=== PATIENT | female | born 1935 | race Caucasian/White ===

== ENCOUNTER 2016-04-12 12:19 | Day surgery (SDC) | payer MEDICARE ==
[2016-04-07 21:46] LABS: BASOPHILS 0.2 %; BASOPHILS ABSOLUTE 0.01 10/3/uL (0.0-0.16); EOSINOPHILS 1.1 %; EOSINOPHILS ABSOLUTE 0.07 10/3/uL (0.0-0.53); HEMATOCRIT 42.1 % (36.0-48.0); IMMATURE GRANULOCYTES 0.2 %; IMMATURE GRANULOCYTES ABSOLUTE 0.01 10/3/uL (0.0-0.11); LYMPHOCYTES 19.4 %; LYMPHOCYTES ABSOLUTE 1.27 10/3/uL (0.67-4.30); MEAN CORPUS HGB CONC 33.3 g/dL (32.0-36.0); MEAN CORPUSCULAR HEMOGLOB 29.5 pg (26.0-34.0); MEAN CORPUSCULAR VOLUME 88.8 fL (80-100); MEAN PLATELET VOLUME 11.6 fL (9.2-13.0); MONOCYTES 8.5 %; MONOCYTES ABSOLUTE 0.56 10/3/uL (0.21-1.20); NEUTROPHILS 70.6 %; NEUTROPHILS ABSOLUTE 4.63 10/3/uL (2.02-8.40); PLATELET COUNT 189 10/3/uL (150-400); RBC DISTRIBUTION WIDTH 13.5 % (12.0-16.0); RED CELL COUNT 4.74 10/6/uL (4.0-5.6); WHITE BLOOD CELLS 6.6 10/3/uL (4.5-10.5)
[2016-04-07 21:50] LABS: MANUAL DIFF NO %
[2016-04-07 21:57] LABS: CALCIUM, SERUM 9.7 MG/DL (8.5-10.4); CHLORIDE, SERUM 100 MMOL/L (96-112); GFR AFRICAN AMERICAN 80 ML/MIN (>=60); GFR NON AFRICAN AMERICAN 69 ML/MIN (>=60); POTASSIUM, SERUM 5.1 MMOL/L (3.5-5.3); SODIUM, SERUM 137 MMOL/L (135-148)
[2016-04-07 21:58] LABS: BUN (BLOOD UREA NITROGEN) 17 MG/DL (6-23); CO2 (CARBON DIOXIDE) 24 MMOL/L (24-34); GLUCOSE, SERUM 100 MG/DL (60-99)
--- NOTE | ~2016-04-12 | OP ---
Record Of Operation [facility] [address] [place]. [address] NAME: TAO REBOLLEDO : 31 STATUS : [facility] PAT#: [id number] AGE: 80 ADM/REG DATE : 04/12/16 MR#: [id number] REPORT SERV DATE: 04/12/16 DICTATED BY: PRASHANTH RHOADES DATE: 04/12/16 REPORT STATUS : Draft TRANSCRIBED BY: MODL DATE: 04/12/16 DATE OF PROCEDURE: 04/12/2016 PREOPERATIVE DIAGNOSIS: Lower extremity atherosclerosis with rest pain, right foot. POSTOPERATIVE DIAGNOSIS: Lower extremity atherosclerosis with rest pain, right foot. PROCEDURES: 1. Aortogram with right leg runoff. 2. Stent placement, right popliteal artery. SURGEON: Prashanth Rhoades M.D. ANESTHESIA: Local with sedation. COMPLICATIONS: None. BLOOD LOSS: Minimal. HISTORY: The patient is an 80-year-old female with diminished perfusion of the right foot, atherosclerosis, and rest pain symptoms. It was felt she would benefit from arteriogram with intervention. This was discussed in detail with the patient, she expressed understanding and desired to proceed. DESCRIPTION OF PROCEDURE: The patient was taken to the operating room and placed in the supine position. She was given IV sedation without complication. Both groins were prepped and draped in sterile fashion. Ultrasound was used to identified common femoral artery on the left. 1% lidocaine was infiltrated in the skin and subcutaneous tissues. Under ultrasound guidance, an 18-gauge needle was placed in the common femoral artery. Wire was passed into the aorta, which was confirmed with fluoroscopy. The needle was removed and a 5 [place] sheath placed. UF catheter was passed over the wire in the aorta. Aortogram shows patent distal aorta and patent common internal and external iliac arteries bilaterally. There was extensive bowel gas. The common femoral, profunda femoral, and superficial femoral artery proximally are patent on the right. Wire was placed in the catheter. The catheter was placed in the superficial femoral artery origin. Arteriogram of the right leg shows a patent superficial femoral artery throughout the thigh. The popliteal artery is patent to where it crosses the femur and there is a 99% stenosis. Beyond this area, the popliteal artery is patent above and below the knee. The posterior tibial artery is widely patent to the foot. The anterior tibial artery is patent proximally, but appears occluded in the mid lower leg. The peroneal artery fills toward the ankle, but does not fill the foot. The patient was given 4000 units of heparin intravenously. A wire was guided in the superficial femoral artery and the sheath exchanged for a 6 x 45 sheath. A glide wire and omaira catheter were used to cross the stenosis in the above knee popliteal artery and select arteriogram below this area shows it to be within the true lumen. Additional images show diseased anterior tibial artery proximally. The proximal portion of the posterior tibial and peroneal arteries are widely patent. A 7 x 30 self-expanding stent was deployed at the Record Of [address] [address] NAME: TAO REBOLLEDO : 31 STATUS : [facility] PAT#: [id number] AGE: 80 ADM/REG DATE : 04/12/16 MR#: [id number] REPORT SERV DATE: 04/12/16 DICTATED BY: PRASHANTH RHOADES DATE: 04/12/16 REPORT STATUS : Draft TRANSCRIBED BY: TAY DATE: 04/12/16 site of stenosis and post angioplasty with a 6 x 40 balloon. Post arteriogram shows the stent to be widely patent with no residual stenosis. Additional imaging below the knee once again confirms widely patent posterior tibial artery with patent peroneal artery to the distal lower leg. The anterior tibial artery can be seen to the mid lower leg. The posterior tibial artery fills all the way to the ankle. This was felt to be an excellent result. The sheath was removed and access closed with StarClose device without difficulty. The patient tolerated the procedure well. She was taken to the recovery room in stable condition. She will be discharged home in two hours if stable. FARIDA/TAY Prashanth Rhoades M.D. / [id number] CC: Mino Ruiz
[~2016-04-12 12:19] MED LIST: ASAB PO; ATV1 PO; AVAPRO300 MG PO; COREG6 PO; DITRO5 PO; DORYX100 MG PO; EFFEXOR XR150 MG PO; EFFEXXR75 PO; FORTAMET1000 MG PO; JANUVIA100 MG PO; LIPITOR20 PO; NEUR300 PO; NEUR600 PO; PLAVIX PO; PRAND5 PO; SYN1 PO
== END 2016-04-12 17:41 | disposition home or self-care (01) ==
LOC: SDC 12:19 → SSU1 15:51
PROVIDERS: Surgery
PROC: 047M35Z Dilation of Right Popliteal Artery with Two Drug-eluting Intraluminal Devices, Percutaneous Approach (ICD-10-PCS; principal; 2016-04-12 13:15)
DX: I70.221 Atherosclerosis of native arteries of extremities with rest pain, right leg (principal); E11.9 Type 2 diabetes mellitus without complications; I10 Essential (primary) hypertension; J44.9 Chronic obstructive pulmonary disease, unspecified; I73.9 Peripheral vascular disease, unspecified; F32.9 Major depressive disorder, single episode, unspecified; I25.10 Atherosclerotic heart disease of native coronary artery without angina pectoris; Z88.0 Allergy status to penicillin; Z87.891 Personal history of nicotine dependence
CPT/HCPCS: 36415; 37226; 75625; 75710; 75774; 80048; 82962; 85025; 93005; A9270-GY; C1725; C1769; C1876; C1894; J0690; J2250; J2405; J3010; Q9967

== ENCOUNTER 2016-06-15 19:52 | Inpatient (IN) | payer MEDICARE ==
--- NOTE | ~2016-06-15 | HP ---
History And Physical [address] [place]. [address] NAME: TAO REBOLLEDO : 31 STATUS : ADM Noelle PAT#: [id number] AGE: 80 ADM/REG DATE : 06/15/16 MR#: [id number] REPORT SERV DATE: 06/16/16 DICTATED BY: ZAINAB FU DATE: 06/16/16 REPORT STATUS : Draft TRANSCRIBED BY: MODJonathan DATE: 06/16/16 DATE OF ADMISSION: 06/15/2016 POINT OF ENTRY: [facility] Emergency Department. PRIMARY CARE PHYSICIAN: Nurse practitioner, Alexandra Herman. CHIEF COMPLAINT: Weakness, chills, and confusion. HISTORY OF PRESENT ILLNESS: Ms. Rebolledo is an 80-year-old female with history of hypertension, hypothyroidism, aro-ihntcld-rvifszmrd diabetes mellitus type 2, who presents to the emergency department today with a one-day history of weakness, chills, as well as altered mental status. The patient states that she was recently diagnosed with urinary tract infection and placed on ciprofloxacin, which she has completed. She was in her usual state of health until sometime Tuesday when she started to develop severe shaking, chills, as well as diffuse weakness. She states that she felt "weird" as if her blood sugar was low, but when she checked her blood sugar, it was in the high 100s. Her daughter who came to evaluate her for her complaints did note that she also was very confused with some short-term memory difficulty but denied any other symptoms. The patient denies any recent fevers, chest pain, shortness of breath, abdominal pain, nausea, vomiting, diarrhea, constipation, dysuria, melena, or hematochezia. The patient states that she felt as if she had urinary tract infection yesterday with some urinary frequency and urgency but that has since resolved today. Initial evaluation in the emergency department notable for a blood pressure of 103/49. White count was normal. Urinalysis was positive for urinary tract infection. CT scan of the brain was negative. Her vital signs were notable for some hypotension with blood pressures of 80s to 90s over 50s. The patient was subsequently given some IV fluids and IV antibiotics and admitted to the Hospitalist Service. REVIEW OF SYSTEMS: Comprehensive review of systems otherwise negative unless listed in history of present illness. PREVIOUS MEDICAL HISTORY: 1. Peripheral arterial disease and peripheral vascular disease, status post right popliteal stent. 2. Hypertension. 3. Hypothyroidism. 4. Exb-hkyxado-sgsbanllq diabetes mellitus type 2. 5. Coronary artery disease with prior myocardial infarction and cardiac stenting. SURGICAL HISTORY: History And Physical [address] [address] NAME: TAO REBOLLEDO : 31 STATUS : ADM Noelle PAT#: [id number] AGE: 80 ADM/REG DATE : 06/15/16 MR#: [id number] REPORT SERV DATE: 06/16/16 DICTATED BY: ZAINAB FU DATE: 06/16/16 REPORT STATUS : Draft TRANSCRIBED BY: TAY DATE: 06/16/16 1. Cholecystectomy. 2. Cardiac stenting. 3. Right popliteal stent. ALLERGIES: PENICILLIN CAUSES RASH. HOME MEDICATIONS: 1. Tylenol 1300 mg daily p.r.n. 2. Aspirin 81 mg at bedtime. 3. Atorvastatin 20 mg at bedtime. 4. Carvedilol 6.25 mg b.i.d. 5. Plavix 75 mg daily. 6. Doxycycline 100 mg Tuesday, Tuesday, and Tuesday. 7. Gabapentin 300 mg daily. 8. Gabapentin 600 mg at bedtime. 9. Levothyroxine 100 mcg daily. 10.Ativan 1 mg b.i.d. p.r.n. 11.Metformin ER 1000 mg b.i.d. 12.Omeprazole 20 mg b.i.d. 13.Prandin 0.5 mg p.o. t.i.d. 14.Nizoral topical shampoo. 15.Effexor XR 225 mg daily. SOCIAL HISTORY: She is a former smoker, quit about 25 years ago. Denies any alcohol. Denies any illicits. FAMILY MEDICAL HISTORY: Mother with coronary artery disease, diabetes, and bladder cancer. Father's history is unknown, in his 50s. Siblings with diabetes. LABS AND IMAGIN. White count is 8.5, hemoglobin 13.2, hematocrit 39.5, and platelet count is 168. INR 1.0. 2. Sodium is 138, potassium 4.3, chloride 101, carbon dioxide 28, BUN 24, creatinine 0.81, glucose is 82, calcium is 9.3, protein 6.5, albumin 3.7, bilirubin is 0.5, ALT is 69, AST 75, and alkaline phosphatase is 102. 3. Troponin less than 0.02. 4. Lactic acid is 1.9. 5. Procalcitonin 6.22. 6. Urinalysis: Spec gravity 1.019, hazy with large leukocyte esterase with 52 white blood cells per high-powered field. 7. Chest x-ray per my review shows no acute cardiopulmonary abnormality, does show a mild to moderately elevated right hemidiaphragm. 8. CT scan of the brain shows moderate to advanced diffuse cerebral involutional changes with no acute intracranial abnormalities. 9. ABG: PH is 7.44, pCO2 is 37, PO2 is 71, bicarb is 24, saturating 94% on room air. 10.EKG per my review shows normal sinus rhythm, occasional PVCs with no evidence of any acute ischemia or infarction. History And Physical [address] [address] NAME: TAO REBOLLEDO : 31 STATUS : ADM Noelle PAT#: [id number] AGE: 80 ADM/REG DATE : 06/15/16 MR#: [id number] REPORT SERV DATE: 06/16/16 DICTATED BY: ZAINAB FU DATE: 06/16/16 REPORT STATUS : Draft TRANSCRIBED BY: TAY DATE: 06/16/16 PHYSICAL EXAMINATION: VITAL SIGNS: Temperature is 98.1 degrees Fahrenheit, pulse is 93, respirations 8, saturating 94% on room air, and blood pressure 103/49. On recheck, blood pressure is now 101/37, pulse of 76. GENERAL: The patient is awake, alert, in no acute distress. Resting comfortably in bed. She is a well-developed, well-nourished, female. Family is at bedside. HEENT: Atraumatic and normocephalic. Moist mucous membranes. Pupils are equal, round, and reactive to light and accommodation. Extraocular eye movements are intact. No scleral icterus. NECK: No jugular venous distention. No carotid bruits. CARDIAC: Regular rate and rhythm. No murmurs or gallops. Normal S1, normal S2. LUNGS: Clear to auscultation bilaterally. No wheezes, rhonchi, or crackles. ABDOMEN: Soft, nontender, nondistended with good bowel sounds. No rebound, guarding, or rigidity. EXTREMITIES: Warm and perfused. No cyanosis, clubbing, or edema. SKIN: Warm and dry. PSYCH: Affect appropriate. NEURO: Alert and oriented x3. Cranial nerves 2-12 were grossly intact. Speech is normal. Gait is not assessed. ASSESSMENT: Ms. Rebolledo is an 80-year-old female who presents with a one-day history of weakness, confusion, and chills and found to have evidence of urinary tract infection. PROBLEM LIST: 1. Urinary tract infection. 2. Hypotension. 3. Encephalopathy. 4. Transaminitis. PLAN: 1. Urinary tract infection. We will follow up urine culture. Place her on IV Rocephin. 2. Hypotension. Holding the patient's antihypertensives, aggressive IV fluid hydration. She does not have any evidence of sepsis at this time. Does have some mild evidence of dehydration. She is now on her second liter of IV fluids. Should she remain hypotensive, we will need to admit her to the IMCU for possible pressors. 3. Encephalopathy, likely secondary to urinary tract infection and hypotension. Checking thyroid function studies, ammonia level, as well as vitamin B12. Holding sedating medications. 4. Transaminitis, unclear etiology at this time. The patient denies any alcohol abuse. She does take Tylenol, which we will hold. Check viral hepatitis panel as well as a right upper quadrant ultrasound. 5. DVT prophylaxis. Lovenox subcu. CODE STATUS: The patient wished to be full code. History And Physical [address] [address] NAME: TAO REBOLLEDO : 31 STATUS : ADM Noelle PAT#: [id number] AGE: 80 ADM/REG DATE : 06/15/16 MR#: [id number] REPORT SERV DATE: 06/16/16 DICTATED BY: ZAINAB FU DATE: 06/16/16 REPORT STATUS : Draft TRANSCRIBED BY: TAY DATE: 06/16/16 TORSTEN/TAY Zainab Fu MD / [id number] CC: MD Alexandra Veronica
--- NOTE | ~2016-06-15 | DS ---
Discharge Summary [address] [facility] [place] [address] NAME: TAO REBOLLEDO : 31 STATUS : DIS IN PAT#: [id number] AGE: 80 ADM/REG DATE : 06/15/16 MR#: [id number] REPORT SERV DATE: 06/19/16 DICTATED BY: DATE: REPORT STATUS : Draft TRANSCRIBED BY: MODL DATE: 06/18/16 ADMISSION DATE: 06/15/2016 DISCHARGE DATE: 06/18/2016 DISCHARGE DIAGNOSES: 1. Urinary tract infection. 2. Hypotension. 3. Metabolic encephalopathy related to urinary tract infection. 4. Transaminitis. 5. Hypothyroidism. CONSULTING PHYSICIANS: None. DISCHARGE MEDICATIONS: Aspirin 81 mg p.o. at bedtime; Lipitor 20 mg p.o. at bedtime; Coreg 6.25 mg p.o. b.i.d.; doxycycline 100 mg p.o. Tuesday, a.m. maintenance therapy; Plavix 75 mg p.o. daily; Neurontin 300 mg p.o. in the morning, Neurontin 600 mg p.o. at bedtime; Synthroid 100 mcg p.o. daily; Prilosec 20 mg p.o. b.i.d.; Prandin 0.5 mg p.o. t.i.d. before meals; Effexor XR 225 mg p.o. daily; metformin ER 1000 mg p.o. b.i.d.; Ativan 1 mg p.o. b.i.d. p.r.n. for anxiety; Nizoral 2% shampoo three times weekly; Duricef 1 g p.o. q.12 hours x5 days. IMAGING: Includes CT of the brain without contrast which demonstrated moderate advanced central pattern of diffuse cerebral involutional changes versus less likely normal pressure hydrocephalus or communicating hydrocephalus pattern with ventricles enlarged somewhat out of proportion to the overlying sulci. Otherwise, no acute intracranial pathology identified. No paranasal sinus or mastoid disease noted. Portable chest x-ray was performed; minimal bibasilar atelectasis was noted. Otherwise, no acute cardiopulmonary process was identified. Hepatic ultrasound was performed which showed a normal liver. For full H and P, please refer to Dr. Aren Jones's dictation on 06/15/2016. HOSPITAL COURSE/PROBLEM LIST: 1. Urinary tract infection. The patient is improved during her hospital stay. She is no longer hypotensive nor did she have metabolic encephalopathy. This has resolved. She has had recurrent UTIs in the past. She just finished a recent course of Cipro several weeks ago. However, her symptoms returned. We did urinalysis with culture while she was here. The culture showed that she has a multi-drug resistant E. coli, is resistant to Cipro. It is, however, susceptible to ceftriaxone which she has been on since she was admitted here in the hospital. It is susceptible to what appears to be first and third generation cephalosporins including cefazolin so I will continue the patient on Duricef 1 g p.o. twice daily for five days. She can follow up with her primary care provider as needed if symptoms return. 2. Hypotension. The patient is no longer hypotensive. Yesterday, the patient's systolic blood pressure was 190. I restarted her home medication Coreg. Her systolic blood Discharge Summary [address] [address] NAME: TAO REBOLLEDO : 31 STATUS : DIS IN PAT#: [id number] AGE: 80 ADM/REG DATE : 06/15/16 MR#: [id number] REPORT SERV DATE: 06/19/16 DICTATED BY: DATE: REPORT STATUS : Draft TRANSCRIBED BY: TAY DATE: 06/18/16 pressures range from 130s to 170s. She will need close followup with her primary care provider for further adjustment of her medication and monitoring of her blood pressure. 3. Metabolic encephalopathy. As mentioned above, this has resolved and was related to her urinary tract infection. 4. Transaminitis. Initially, the patient's AST was 75 and ALT was 69. On repeat yesterday, her AST was down to 35 and ALT down to 50. 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 This is likely the culprit of her transaminitis. We will encourage her not to over-take Tylenol as well as having a followup appointment with her primary care provider for further monitoring of her transaminases in the future. 5. Hypothyroidism. The patient's TSH was 0.278 and free T4 was 1.17. We will continue her Synthroid and again have her followup with her primary care provider for further management. 6. Possible sepsis. Her blood cultures have been negative since she has been here. She is afebrile, and she has a normal white blood cell count. She actually has not demonstrated any leukocytosis since admission nor has she had a fever since admission. CLR/MODL Claudio Gale NP / [id number] CC: MD Alexandra Veronica
[2016-06-15 22:10] LABS: BASOPHILS 0.1 %; BASOPHILS ABSOLUTE 0.01 10/3/uL (0.0-0.16); EOSINOPHILS 0.6 %; EOSINOPHILS ABSOLUTE 0.05 10/3/uL (0.0-0.53); ER CBC TAT 0 Hrs 12 Mins; HEMATOCRIT 39.5 % (36.0-48.0); HEMOGLOBIN 13.2 g/dL (12.0-16.0); IMMATURE GRANULOCYTES 0.1 %; IMMATURE GRANULOCYTES ABSOLUTE 0.01 10/3/uL (0.0-0.11); LYMPHOCYTES 7.9 %; LYMPHOCYTES ABSOLUTE 0.67 10/3/uL (0.67-4.30); MEAN CORPUS HGB CONC 33.4 g/dL (32.0-36.0); MEAN CORPUSCULAR HEMOGLOB 29.4 pg (26.0-34.0); MEAN PLATELET VOLUME 10.8 fL (9.2-13.0); MONOCYTES 10.1 %; MONOCYTES ABSOLUTE 0.86 10/3/uL (0.21-1.20); NEUTROPHILS 81.2 %; NEUTROPHILS ABSOLUTE 6.93 10/3/uL (2.02-8.40); PLATELET COUNT 168 10/3/uL (150-400); RBC DISTRIBUTION WIDTH 13.4 % (12.0-16.0); RED CELL COUNT 4.49 10/6/uL (4.0-5.6); WHITE BLOOD CELLS 8.5 10/3/uL (4.5-10.5)
[2016-06-15 22:11] LABS: MANUAL DIFF NO %
[2016-06-15 22:18] LABS: PARTIAL THROMBO TIME 26.4 SEC (22.5-37.2); PROTIME (NOT ORD) 13.2 SEC (12.0-14.5)
[2016-06-15 22:27] LABS: A/G RATIO 1.3 (0.7-1.9); ALBUMIN 3.7 G/DL (3.5-5.0); ALKALINE PHOSPHATASE 102 U/L (45-117); BUN (BLOOD UREA NITROGEN) 24 MG/DL (6-23); CALCIUM, SERUM 9.3 MG/DL (8.5-10.4); CHLORIDE, SERUM 101 MMOL/L (96-112); CO2 (CARBON DIOXIDE) 28 MMOL/L (24-34); CREATININE 0.81 MG/DL (0.55-1.02); GFR AFRICAN AMERICAN 78 ML/MIN (>=60); GFR NON AFRICAN AMERICAN 68 ML/MIN (>=60); GLOBULIN 2.8 G/DL (2.5-4.1); GLUCOSE, SERUM 82 MG/DL (60-99); POTASSIUM, SERUM 4.3 MMOL/L (3.5-5.3); SGOT(AST) 75 U/L (5-40); SGPT(ALT) 69 U/L (5-65); SODIUM, SERUM 138 MMOL/L (135-148); TOTAL BILIRUBIN 0.5 MG/DL (0-1.2); TOTAL PROTEIN 6.5 G/DL (6.0-8.5); TROPONIN I <0.02 NG/ML (<0.05)
[2016-06-15 22:36] LABS: LACTATE 1.9 MMOL/L (0.3-2.4)
[2016-06-15 23:17] LABS: PROCALCITONIN 6.22 ng/mL (<0.5)
[2016-06-15 23:38] LABS: ASCORBIC ACID (UR NOT ORDER) NEG (NEG); BILIRUBIN, URINE NEGATIVE (NEG); ER URINALYSIS TAT 0 Hrs 00 Mins; KETONE, URINE NEGATIVE (NEG); LEUKOCYTE ESTERASE(NOT OR LARGE (NEG); NITRITE (URINE) NEG (NEG); WBC (NOT ORDERED) (RFLEX) 52 (0-5)
[2016-06-15 23:40] LABS: ALLENS TEST Pos; BE (BASE EXCESS) 0.4 MEQ/L (0 +/- 2.5); CARBOXYHEMOGLOBIN 1.3 % (0-3); DEVICE NC; HCO3 (ACTUAL BICARBONATE) 24.2 MEQ/L (23-27); HEMOBLOGIN CONTENT 12.2 G/DL (12-16); INSTRUMENT SERIAL # 8087; METHEMOGLOBIN 0.1 % (0-3); O2 CONTENT 15.9 VOL% (18-24); OPERATOR ID 33449; PCO2 (CO2 TENSION) 37 MMHG (35-45); PO2 (O2 TENSION) 71 MMHG (79-93); SAMPLE Arterial; pH 7.44 (7.37-7.43)
[2016-06-16] MEDS ORDERED: EFFEXXR75 PO (00:20)
[2016-06-16] MEDS ORDERED: ASAB PO (00:20)
[2016-06-16] MEDS ORDERED: PRAND5 PO (00:23)
[2016-06-16] MEDS ORDERED: PRILO PO (00:23)
[2016-06-16] MEDS ORDERED: NEUR300 PO (00:23)
[2016-06-16] MEDS ORDERED: NEUR600 PO (00:23)
[2016-06-16] MEDS ORDERED: PLAVIX PO (00:23)
[2016-06-16] MEDS ORDERED: SYN1 PO (00:24)
[2016-06-16] MEDS ORDERED: COREG6 PO (00:24)
[2016-06-16] MEDS ORDERED: MONODOX100 MG PO (00:24)
[2016-06-16] MEDS ORDERED: FORTAMET1000 MG PO (00:25)
[2016-06-16] MEDS ORDERED: ATV1 PO (00:25)
[2016-06-16] MEDS ORDERED: LIPITOR20 PO (00:26)
[2016-06-16] MEDS ORDERED: NIZORAL 2% SHAMPOO TOP (00:27)
[2016-06-16] MEDS ORDERED: 8 HOUR650 MG PO (00:30)
[2016-06-16 03:03] LABS: FREE T4 1.17 NG/DL (0.76-1.46)
[2016-06-16 03:04] LABS: ULTRASENSITIVE TSH 0.278 MCIU/ML (0.358-3.740)
[2016-06-16 07:16] LABS: BASOPHILS 0.2 %; BASOPHILS ABSOLUTE 0.01 10/3/uL (0.0-0.16); EOSINOPHILS 2.2 %; EOSINOPHILS ABSOLUTE 0.11 10/3/uL (0.0-0.53); HEMATOCRIT 38.2 % (36.0-48.0); HEMOGLOBIN 12.4 g/dL (12.0-16.0); IMMATURE GRANULOCYTES 0.2 %; IMMATURE GRANULOCYTES ABSOLUTE 0.01 10/3/uL (0.0-0.11); LYMPHOCYTES 29.7 %; LYMPHOCYTES ABSOLUTE 1.48 10/3/uL (0.67-4.30); MEAN CORPUS HGB CONC 32.5 g/dL (32.0-36.0); MEAN CORPUSCULAR HEMOGLOB 29.1 pg (26.0-34.0); MEAN CORPUSCULAR VOLUME 89.7 fL (80-100); MEAN PLATELET VOLUME 10.8 fL (9.2-13.0); MONOCYTES 8.2 %; MONOCYTES ABSOLUTE 0.41 10/3/uL (0.21-1.20); NEUTROPHILS 59.5 %; NEUTROPHILS ABSOLUTE 2.97 10/3/uL (2.02-8.40); PLATELET COUNT 164 10/3/uL (150-400); RBC DISTRIBUTION WIDTH 13.7 % (12.0-16.0); RED CELL COUNT 4.26 10/6/uL (4.0-5.6)
[2016-06-16 07:23] LABS: MANUAL DIFF NO %
[2016-06-16 08:14] LABS: CHLORIDE, SERUM 107 MMOL/L (96-112); CO2 (CARBON DIOXIDE) 27 MMOL/L (24-34); CREATININE 0.67 MG/DL (0.55-1.02); GFR AFRICAN AMERICAN 95 ML/MIN (>=60); GFR NON AFRICAN AMERICAN 82 ML/MIN (>=60); GLUCOSE, SERUM 75 MG/DL (60-99); POTASSIUM, SERUM 3.9 MMOL/L (3.5-5.3); SODIUM, SERUM 143 MMOL/L (135-148)
[2016-06-16 08:15] LABS: BUN (BLOOD UREA NITROGEN) 17 MG/DL (6-23); FOLATE 20.8 NG/ML (>5.2)
[2016-06-16 09:09] LABS: HEPATITIS B SURFACE ANTIGEN NON-REACTIVE (NON-REACT)
[2016-06-16 09:37] LABS: HEPATITIS C ANTIBODY NON-REACTIVE (NON-REACT)
[2016-06-16 09:38] LABS: HEPATITIS B CORE AB IGM NON-REACTIVE (NON-REAC)
[2016-06-16 09:39] LABS: HEP A ANTIBODY IGM NON-REACTIVE (NON-REACT)
[2016-06-17 07:10] LABS: BASOPHILS 0.2 %; BASOPHILS ABSOLUTE 0.01 10/3/uL (0.0-0.16); EOSINOPHILS ABSOLUTE 0.09 10/3/uL (0.0-0.53); HEMATOCRIT 36.5 % (36.0-48.0); HEMOGLOBIN 12.1 g/dL (12.0-16.0); IMMATURE GRANULOCYTES 0.2 %; IMMATURE GRANULOCYTES ABSOLUTE 0.01 10/3/uL (0.0-0.11); LYMPHOCYTES 22.8 %; LYMPHOCYTES ABSOLUTE 1.05 10/3/uL (0.67-4.30); MEAN CORPUS HGB CONC 33.2 g/dL (32.0-36.0); MEAN CORPUSCULAR HEMOGLOB 29.4 pg (26.0-34.0); MEAN CORPUSCULAR VOLUME 88.6 fL (80-100); MEAN PLATELET VOLUME 10.5 fL (9.2-13.0); MONOCYTES 10.9 %; NEUTROPHILS 63.9 %; NEUTROPHILS ABSOLUTE 2.94 10/3/uL (2.02-8.40); PLATELET COUNT 147 10/3/uL (150-400); RBC DISTRIBUTION WIDTH 13.5 % (12.0-16.0); RED CELL COUNT 4.12 10/6/uL (4.0-5.6); WHITE BLOOD CELLS 4.6 10/3/uL (4.5-10.5)
[2016-06-17 07:12] LABS: MANUAL DIFF NO %
[2016-06-17 10:05] LABS: CALCIUM, SERUM 8.4 MG/DL (8.5-10.4); CHLORIDE, SERUM 108 MMOL/L (96-112); CO2 (CARBON DIOXIDE) 27 MMOL/L (24-34); CREATININE 0.71 MG/DL (0.55-1.02); GFR AFRICAN AMERICAN 92 ML/MIN (>=60); GFR NON AFRICAN AMERICAN 79 ML/MIN (>=60); SGPT(ALT) 50 U/L (5-65); SODIUM, SERUM 143 MMOL/L (135-148)
[2016-06-17 10:09] LABS: BUN (BLOOD UREA NITROGEN) 10 MG/DL (6-23); GLUCOSE, SERUM 159 MG/DL (60-99); SGOT(AST) 35 U/L (5-40)
[2016-06-18 05:57] LABS: BUN (BLOOD UREA NITROGEN) 8 MG/DL (6-23); CALCIUM, SERUM 8.3 MG/DL (8.5-10.4); CHLORIDE, SERUM 108 MMOL/L (96-112); CO2 (CARBON DIOXIDE) 29 MMOL/L (24-34); CREATININE 0.67 MG/DL (0.55-1.02); GFR AFRICAN AMERICAN 95 ML/MIN (>=60); GFR NON AFRICAN AMERICAN 82 ML/MIN (>=60); POTASSIUM, SERUM 3.9 MMOL/L (3.5-5.3); SODIUM, SERUM 145 MMOL/L (135-148)
[2016-06-18 06:00] LABS: GLUCOSE, SERUM 95 MG/DL (60-99)
[2016-06-18 06:37] LABS: BASOPHILS 0.2 %; BASOPHILS ABSOLUTE 0.01 10/3/uL (0.0-0.16); EOSINOPHILS 4.3 %; EOSINOPHILS ABSOLUTE 0.21 10/3/uL (0.0-0.53); HEMATOCRIT 38.4 % (36.0-48.0); HEMOGLOBIN 12.8 g/dL (12.0-16.0); IMMATURE GRANULOCYTES 0.2 %; IMMATURE GRANULOCYTES ABSOLUTE 0.01 10/3/uL (0.0-0.11); LYMPHOCYTES 35.2 %; LYMPHOCYTES ABSOLUTE 1.74 10/3/uL (0.67-4.30); MANUAL DIFF NO %; MEAN CORPUS HGB CONC 33.3 g/dL (32.0-36.0); MEAN CORPUSCULAR HEMOGLOB 29.6 pg (26.0-34.0); MEAN CORPUSCULAR VOLUME 88.7 fL (80-100); MEAN PLATELET VOLUME 10.8 fL (9.2-13.0); MONOCYTES 11.9 %; MONOCYTES ABSOLUTE 0.59 10/3/uL (0.21-1.20); NEUTROPHILS 48.2 %; NEUTROPHILS ABSOLUTE 2.38 10/3/uL (2.02-8.40); PLATELET COUNT 151 10/3/uL (150-400); RBC DISTRIBUTION WIDTH 13.3 % (12.0-16.0); RED CELL COUNT 4.33 10/6/uL (4.0-5.6); WHITE BLOOD CELLS 4.9 10/3/uL (4.5-10.5)
[2016-06-18] MEDS ORDERED: DURICEF PO (11:44)
== END 2016-06-18 13:56 | disposition home or self-care (01) | DRG 689 ==
LOC: ER 19:52 → 5SO 20:00
PROVIDERS: Emergency Medicine; Internal Medicine; Nurse Practitioner Acute Care
DX: N39.0 Urinary tract infection, site not specified (principal); G93.41 Metabolic encephalopathy; I95.9 Hypotension, unspecified; E86.0 Dehydration; E11.9 Type 2 diabetes mellitus without complications; E03.9 Hypothyroidism, unspecified; I25.10 Atherosclerotic heart disease of native coronary artery without angina pectoris; R74.0 Nonspecific elevation of levels of transaminase and lactic acid dehydrogenase [LDH]; Z95.5 Presence of coronary angioplasty implant and graft; I25.2 Old myocardial infarction; Z88.0 Allergy status to penicillin; Z79.82 Long term (current) use of aspirin; Z79.01 Long term (current) use of anticoagulants; Z79.899 Other long term (current) drug therapy; Z82.49 Family history of ischemic heart disease and other diseases of the circulatory system; Z83.3 Family history of diabetes mellitus; Z80.52 Family history of malignant neoplasm of bladder; Z87.891 Personal history of nicotine dependence
CPT/HCPCS: 36600; 70450; 71010; 76705; 80048; 80053; 80074; 81001; 82140; 82607; 82746; 82805; 82962; 83605; 83735; 84100; 84145; 84439; 84443; 84450; 84460; 84484; 85025; 85610; 85730; 87040; 87077; 87086; 87186; 93005; 96374; 99285; A9270-GY